=== PATIENT | female | born 1940 | race Caucasian/White ===

== ENCOUNTER 2019-01-19 21:43 | Emergency (ER) | payer MEDICARE, OTHER ==
[~2019-01-19] VITALS: Ht 162.6 cm; Wt 77.1 kg
[2019-01-19 21:43] VITALS: BP 137/80
--- NOTE | 2019-01-19 21:43 | NUR ---
PT [facility]. TAKEN TO BED 8
--- NOTE | 2019-01-19 21:44 | NUR ---
Respiratory Therapist at bedside for respiratory intervention
--- NOTE | 2019-01-19 21:44 | NUR ---
79 Y/O FEMALE BIB [facility] FROM HOME. PRESENTS TO ED, C/O SOB. REPORT RECEIVED FROM POSTDOCTORAL SCIENTIST, STATES RECEIVING A CALL FROM PRIVATE RESIDENCE OF PT COMPLAINING OF SOB, ON GOING X3 DAYS PER PT. PER POSTDOCTORAL SCIENTIST, PT HAS HX OF CHF AND HAS BEEN NON MED COMPLIANT TO MEDICATION LASIX. VISIBLE PITTING EDEMA ON BILAT L EXTREMITY. PT PLACED ON CPAP ENROUTE DUE TO DIFFICULTY BREATHING, AUDIBLE WHEEZING ON UPPER LOBES PER POSTDOCTORAL SCIENTIST. POSTDOCTORAL SCIENTIST STATES EKG READ AFIB. PT RECEIVED 1 DOSE NITRO. AT HOSPITAL, PT IS ALERT TO PERSON, PLACE, TIME, EVENT. LUNG SOUNDS ARE CLEAR DURING ASSESSMENT. PT PLACED ON 2L O2, 100% SPO2. PT VSS. WILL CONTINUE TO MONITOR.
--- NOTE | 2019-01-19 21:44 | NUR ---
Dr. Oakes examining patient.
[2019-01-19] MEDS ORDERED: FUROSEMIDE 40 MG/4 ML VIAL IVP ONE (22:00)
[2019-01-19 22:33] LABS: HEMATOCRIT 36.5 % (36-48); HEMOGLOBIN 11.7 g/dL (12.0-16.0); MEAN CORPUSCULAR HEMOGLOBIN 28 pg (27-31); MEAN CORPUSCULAR HGB CONC 32 g/dL (33-37); MEAN CORPUSCULAR VOLUME 86.4 fL (80-94); PLATELET COUNT (AUTO) 345 K/uL (140-450); RED BLOOD CELL COUNT(AUTO) 4.23 MIL/uL (4.20-5.40); RED CELL DISTRIBUTION WIDTH 15.8 % (11.6-13.7); WHITE BLOOD COUNT (AUTO) 17.1 K/uL (4.8-10.8)
[2019-01-19 22:48] LABS: LYMPHOCYTES % (MANUAL) 4 % (20-46); MONOCYTES % (MANUAL) 2 % (5-12)
[2019-01-19 23:13] LABS: ANION GAP 14.9 (8-16); CARBON DIOXIDE 26.4 mmol/L (21-32); CHLORIDE 100 mmol/L (98-107); CREATININE 0.7 mg/dL (0.6-1.3); GLUCOSE 200 mg/dL (74-106); POTASSIUM 4.3 mmol/L (3.5-5.1); SODIUM SERUM 137 mmol/L (136-145); UREA NITROGEN, BLOOD 25 mg/dL (7-18)
[2019-01-19] MEDS ORDERED: cefTRIAXone 1,000 MG VIAL ONE (23:18)
[2019-01-20] MEDS ORDERED: AZITHROMYCIN 500 MG in DEXTROSE 5% 250 ML IV ONE (00:20)
[2019-01-20] MEDS ORDERED: AZITHROMYCIN 500 MG INJ VIAL IV ONE (00:38)
--- NOTE | 2019-01-20 03:21 | NUR ---
PT ASLEEP. LAYING ON BED. PT VSS. NO SOB.
--- NOTE | 2019-01-20 03:44 | NUR ---
[facility] AT BEDSIDE
--- NOTE | 2019-01-20 04:00 | NUR ---
CALLED [facility]. GAVE REPORT TO DANUTA SAMUELS.
[2019-01-20 04:13] VITALS: BP 143/77
--- NOTE | 2019-01-20 04:13 | NUR ---
PT TAKEN BY [facility] TO [facility] [id number]
--- NOTE | 2019-01-20 04:13 | NUR ---
PT TRANSFERRED TO [facility]. PICKED UP BY [facility]. REPORT GIVEN TO [facility]. REPORT GIVEN TO DANUTA SAMUELS AT [facility]. PT VSS. NO SOB. PT CARE TRANSFERRED TO [facility].
--- NOTE | 2019-01-21 09:12 | NUR ---
Late entry. Confirmed with ARVIND Lombardi IVPB completed at 2340 Addendum: 01/21/19 at 0913 by [email or web address] Zithromax completed at 0130
== END 2019-01-20 04:13 | disposition short-term general hospital (02) ==
LOC: MED 21:43
DX: I11.0 Hypertensive heart disease with heart failure (principal); I50.9 Heart failure, unspecified; J18.9 Pneumonia, unspecified organism; Z88.5 Allergy status to narcotic agent
CPT/HCPCS: 36415; 71045; 80048; 83880; 84484; 85025; 96365; 96367; 96375; 99285; J0456; J0696; J1940; Q0092